=== PATIENT | male | born 1985 | race Two or more races ===

== ENCOUNTER 2017-05-30 14:36 | Day surgery (SDC) | payer BC, OTHER ==
[~2017-05-30 14:36] MED LIST: Lidocaine 1% 30 ML SDV ONE
[2017-05-30] MEDS ORDERED: Lidocaine 1%/Sod Bicarbonate in NS 8.4% 1 ML Syringe IV PRN (14:50)
[2017-05-30] MEDS ORDERED: Sodium Chloride 0.9% 10 ML Syringe FLUSH PRN (14:50)
[2017-05-30] MEDS ORDERED: Lactated Ringers 1,000 ML IV SCH (15:00)
--- NOTE | 2017-05-30 15:10 | PCM.PREANE ---
Preanesthetic Assessment - Procedure Proposed Procedure: I&D perirectal abscess - Anesthesia/Transfusion/Family Hx Anesthesia History: Prior Anesthesia Without Reaction Family History of Anesthesia Reaction: No Transfusion History: No Prior Transfusion(s) - Review of Systems General: Other (Weight loss 23lbs in last 5 days ) Pulmonary: No Symptoms Cardiovascular: No Symptoms Gastrointestinal: No Symptoms Neurological: No Symptoms Other: Reports: None, Depression - Physical Assessment NPO Status Date: 05/30/17 NPO Status Time: 09:00 O2 Sat by Pulse Oximetry: 95 Respiratory Rate: 16 Vital Signs: Last Vital Signs Temp 36.1 C 05/30/17 14:40 Pulse 105 H 05/30/17 14:40 Resp 16 05/30/17 14:40 BP 137/90 05/30/17 14:40 Pulse Ox 95 05/30/17 14:40 Height: 1.78 m Weight: 127.459 kg ASA Class: 2 Mental Status: Alert & Oriented x3 Airway Class: Mallampati = 1 Dentition: Reports: Broken Tooth/Teeth (cracked tooth to bottom left (molar)) Thyro-Mental Finger Breadths: 3 Mouth Opening Finger Breadths: 3 ROM/Head Extension: Full Lungs: Clear to Auscultation, Normal Respiratory Effort Cardiovascular: Regular Rate, Regular Rhythm - Allergies Allergies/Adverse Reactions: Allergies Allergy/AdvReac Type Severity Reaction Status Date / Time No Known Allergies Allergy Verified 01/29/15 22:27 - Blood Blood Available: No Product(s) Available: None - Anesthesia Plan Pre-Op Medication Ordered: None - Acknowledgements Anesthesia Type Planned: General Anesthesia (secondary LMA if does not tolerate MAC), MAC (primary) Pt an Appropriate Candidate for the Planned Anesthesia: Yes Alternatives and Risks of Anesthesia Discussed w Pt/Guardian: Yes Pt/Guardian Understands and Agrees with Anesthesia Plan: Yes PreAnesthesia Questionnaire - Past Health History Medical/Surgical History: Denies Medical/Surgical History Endocrine/Metabolic History: Reports: Obesity/BMI 30+ - Past Surgical History HEENT Surgical History: Reports: Myringotomy w Tube(s) - SUBSTANCE USE Smoking Status *Q: Current Every Day Smoker (1ppd for 14 years) Tobacco Use Within Last Twelve Months: Cigarettes Second Hand Smoke Exposure: No Days Per Week of Alcohol Use: 3 Number of Drinks Per Day: 5 Total Drinks Per Week: 15 Recreational Drug Use History: No - HOME MEDS Home Medications: Home Meds Zolpidem [Ambien] 10 mg PO BEDTIME PRN 01/29/15 [History] Hydrocodone/Acetaminophen [Hydrocodon-Acetaminophen 5-325] 1 tab PO ASDIRECTED PRN 05/30/17 [History] Sulfamethoxazole/Trimethoprim [Septra] 160 - 800 mg PO TID 05/30/17 [History] - CURRENT (IN HOUSE) MEDS Current Meds: Current Medications Lactated Ringer's (Ringers, Lactated) 1,000 mls @ 125 mls/hr IV ASDIRECTED RADHA Stop: 05/30/17 23:59 Last Admin: 05/30/17 14:45 Dose: 125 mls/hr Lidocaine/Sodium Bicarbonate (Buffered Lidocaine 1% In Ns 8.4%) 0.25 ml IV ONETIME PRN PRN Reason: Prior to IV Start Stop: 05/30/17 23:00 Last Admin: 05/30/17 14:45 Dose: 0.25 ml Sodium Chloride (Saline Flush) 10 ml FLUSH ASDIRECTED PRN PRN Reason: Keep Vein Open Stop: 05/30/17 23:00 Discontinued Medications Dibucaine (Nupercainal 1% Oint) Confirm Administered Dose 28.35 gm .ROUTE .STK- MED ONE Stop: 05/30/17 14:34 Lidocaine HCl (Xylocaine-Mpf 1%) Confirm Administered Dose 30 ml .ROUTE .STK- MED ONE Stop: 05/30/17 14:34
[2017-05-30] MEDS ORDERED: fentaNYL 100 MCG/2 ML SDV ONE (15:31)
[2017-05-30] MEDS ORDERED: Midazolam 1 MG/ML 2 ML SDV ONE (15:31)
[2017-05-30] MEDS ORDERED: Ketamine 500 mg/10 ML MDV ONE (15:31)
[2017-05-30] MEDS ORDERED: Propofol 200 MG/20 ML SDV ONE ×2 (15:31→15:54)
[2017-05-30] MEDS ORDERED: Lidocaine 1% 4 ML ONE (15:33)
[2017-05-30] MEDS ORDERED: fentaNYL 250 MCG/5 ML SDV ONE (15:45)
--- NOTE | 2017-05-30 15:56 | PCM.OPNOTE ---
- General Post-Op/Procedure Note Date of Surgery/Procedure: 05/30/17 Operative Procedure(s): I&D ila rectal abscess Pre Op Diagnosis: ila rectal abscess Post-Op Diagnosis: Same Anesthesia Technique: MAC Primary Surgeon: Anthony Ruiz EBL in mLs: 10 Complications: None Condition: Good
--- NOTE | 2017-05-30 16:17 | PCM48HPAN ---
Post Anesthesia Note - EVALUATION WITHIN 48HRS OF ANESTHETIC Vital Signs in Normal Range: Yes Patient Participated in Evaluation: Yes Respiratory Function Stable: Yes Airway Patent: Yes Cardiovascular Function Stable: Yes Hydration Status Stable: Yes Pain Control Satisfactory: Yes Nausea and Vomiting Control Satisfactory: Yes Mental Status Recovered: Yes
[2017-05-30 16:36] VITALS: BP 120/68
--- NOTE | 2017-05-31 08:39 | OR ---
DATE OF OPERATION: 05/30/2017 SURGEON: Anthony Ruiz MD PREOPERATIVE DIAGNOSIS: Perirectal abscess. POSTOPERATIVE DIAGNOSIS: Perirectal abscess. OPERATION PERFORMED: Incision and drainage done under IV sedation, local anesthetic 1% Xylocaine. FINDINGS: An abscess pointing on the left posterior perianal area. Unable to see the anoderm because of the patient's size. DESCRIPTION OF PROCEDURE: The patient was taken to the operating room, placed in a supine position, connected monitoring equipment, given IV sedation, and placed in the lithotomy position. The perianal area was prepped with Betadine, draped off in a sterile fashion by palpation. Good view of the induration in the posterior left side. Skin was anesthetized and incision was made and the abscess cavity was entered and this aspirated. The incision was enlarged to allow the index finger to break up the adhesions and this was then packed with 0.5 inch Nu Gauze. The patient tolerated the procedure and sent to recovery room in a stable condition. ESTIMATED BLOOD LOSS: Approximately 10 mL. ANESTHESIA: IV sedation. MMODAL /[id number]
== END 2017-05-30 17:00 | disposition home or self-care (01) ==
LOC: JD.SDS 14:36
PROVIDERS: ATTEND Surgery
DX: K61.1 Rectal abscess (principal); F32.9 Major depressive disorder, single episode, unspecified; F17.210 Nicotine dependence, cigarettes, uncomplicated; E66.9 Obesity, unspecified; Z98.890 Other specified postprocedural states; Z79.899 Other long term (current) drug therapy; Z68.41 Body mass index [BMI] 40.0-44.9, adult
CPT/HCPCS: 46040; J2250; J3010; J7120; 00902; A9270-GY; J2704

== ENCOUNTER 2022-02-21 12:31 | Day surgery (SDC) | payer BC ==
[2022-02-21] MEDS ORDERED: Sodium Chloride 0.9% 10 ML Syringe FLUSH PRN (13:23)
[2022-02-21] MEDS ORDERED: Ondansetron 4 MG/2 ML SDV IVPUSH ONE (13:23)
[2022-02-21] MEDS ORDERED: Sodium Chloride 0.9% 1,000 ML IV STA (13:23)
[2022-02-21] MEDS ORDERED: HYDROmorphone 0.5 MG/0.5 ML Syringe IVPUSH ONE (13:23)
[2022-02-21] MEDS ORDERED: HYDROmorphone 0.5 MG/0.5 ML Syringe IVPUSH PRN (15:01)
[2022-02-21] MEDS ORDERED: Ondansetron 4 MG/2 ML SDV IVPUSH PRN (15:01)
[2022-02-21] MEDS ORDERED: Midazolam 1 MG/ML 2 ML SDV ONE (15:04)
[2022-02-21] MEDS ORDERED: Ketamine 500 mg/10 ML MDV ONE (15:04)
[2022-02-21] MEDS ORDERED: Propofol 200 MG/20 ML SDV ONE ×3 (15:05→16:03)
[2022-02-21] MEDS ORDERED: fentaNYL 100 MCG/2 ML SDV ONE (15:06)
[2022-02-21] MEDS ORDERED: Lidocaine 1% 5 ML VIAL ONE (15:06)
[2022-02-21] MEDS ORDERED: Lidocaine 1% with EPINEPHrine 1:100,000 20 ML MDV ONE (15:09)
[2022-02-21 15:18] LABS: ESTIMATED GFR > 60 mL/min (>60)
[2022-02-21] MEDS: fentaNYL 100 MCG/2 ML SDV IVPUSH PRN ×3 (16:40→17:25)
[2022-02-21] MEDS ORDERED: Ketorolac 30 MG/ML SDV IVPUSH ONE (17:00)
[2022-02-21] MEDS ORDERED: Acetaminophen/HYDROcodone 325-5 MG Tab PO ONE (17:29)
[2022-02-21 18:16] VITALS: BP 124/74; PULSE 86
== END 2022-02-21 18:05 | disposition home or self-care (01) ==
LOC: JD.ED 12:31 → JD.SDS 15:05
PROVIDERS: ATTEND Surgery
DX: K61.0 Anal abscess (principal); F17.210 Nicotine dependence, cigarettes, uncomplicated; E66.9 Obesity, unspecified; Z68.42 Body mass index [BMI] 45.0-49.9, adult; Z79.899 Other long term (current) drug therapy
CPT/HCPCS: 36415; 46050; 80053; 85025; 86140; 87070; 87075; 87077; 87186; 87205; 96374; 99284; A9270; J1170; J1885; J2250; J2405; J2704; J3010; J3490; J7030; 00902